=== PATIENT | female | born 1955 | race Two or more races ===

== ENCOUNTER 2018-12-14 10:47 | Emergency (ER) | payer OTHER ==
[~2018-12-14] VITALS: Ht 160 cm; Wt 61.2 kg
[2018-12-14 11:00] VITALS: BP 162/93
== END 2018-12-14 11:57 | disposition home or self-care (01) ==
LOC: ER 10:47
DX: H60.91 Unspecified otitis externa, right ear (principal); I10 Essential (primary) hypertension; E78.00 Pure hypercholesterolemia, unspecified